=== PATIENT | female | born 1970 | race Caucasian/White ===

== ENCOUNTER 2017-11-23 16:28 | Emergency (ER) | payer OTHER ==
[~2017-11-23 16:28] MED LIST: ALPRAZOLAM ER0.5 MG; ALPRAZOLAM XR0.5 M1 PO; BUPROPION HCL XL 300; BUPROPION XL300 M1 PO; IBUPROFEN600 M1 PO; TIMOLOL MALEATE 0.5%; TIMOLOL MALEATE5 M4 OU; TRAVATAN Z5 ML OU; TRAVOPROST 0.004%; TRAZODONE HCL100 M1 PO; TRAZODONE HYDROCHLOR
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
[2017-11-23] MEDS ORDERED: IBUPROFEN800 M1 PO (18:28)
[2017-11-23] MEDS ORDERED: CYCLOBENZAPRINE10 M1 PO (18:28)
[2017-11-23 18:36] VITALS: BP 154/83
== END 2017-11-23 18:36 ==
LOC: ERH 16:28
DX: S16.1XXA Strain of muscle, fascia and tendon at neck level, initial encounter (principal); S09.90XA Unspecified injury of head, initial encounter; R07.9 Chest pain, unspecified; V49.40XA Driver injured in collision with unspecified motor vehicles in traffic accident, initial encounter; Y92.9 Unspecified place or not applicable; H40.9 Unspecified glaucoma; F32.9 Major depressive disorder, single episode, unspecified
CPT/HCPCS: 81001; 81025; 93005; 93010